=== PATIENT | female | born 1965 | race Caucasian/White ===

== ENCOUNTER → 2016-08-11 | Day surgery (SDC) | payer OTHER ==
--- NOTE | 2016-08-10 15:11 | History & Physical Pre-Op ---
General Information and HPI History of Present Illness: The patient is a 51-year-old 2 para 2 who presented to the office 2 weeks ago vaginal swelling. Was noted on examination that she had a left Bartholin's gland approximately 6-7 cm in size. She is admitted today for marsupialization of Bartholin's cyst. Allergies/Medications Allergies: Coded Allergies: Penicillins (UNKNOWN 06/20/15) Sulfa (Sulfonamide Antibiotics) (RASH 06/20/15) morphine (NAUSEA 06/20/15) sulfur dioxide (UNKNOWN 06/20/15) Uncoded Allergies: CLASS: 84:28 - KERATOLYTIC AGENTS (05/13/10) Home Med list Diazepam (Valium) 5 MG TABLET 1 TAB PO TIDPRN PRN ANXIETY (Reported) Past History Surgical History Pertinent Surgical History: bariatric, sleeve Past Family/Social History Psychosocial History Services at Home None Review of Systems Review of Systems Constitutional: Reports: no symptoms. EENTM: Reports: no symptoms. Cardiovascular: Reports: no symptoms. Respiratory: Reports: no symptoms. GI: Reports: no symptoms. Genitourinary: Reports: no symptoms. Musculoskeletal: Reports: no symptoms. Skin: Reports: no symptoms. Neurological/Psychological: Reports: no symptoms. Hematologic/Endocrine: Reports: no symptoms. Immunologic/Allergic: Reports: no symptoms. All Other Systems: Reviewed and Negative Exam & Diagnostic Data Last 24 Hrs of Vital Signs/I&O Vital signs stable Physical Exam: HEENT: Normocephalic atraumatic Chest: Clear to auscultation bilaterally Heart and vascular: Normal S1, S2 Abdomen: Soft, multiple scars Pelvic: Deferred to the OR Extremities: No clubbing cyanosis or edema Assessment/Plan Assessment/Plan: Left Bartholin's cyst Plan marsupialization of left Bartholin's cyst As Ranked By This Provider Problem List: 1. Bartholin cyst
[~2016-08-11] VITALS: Ht 170.2 cm; Wt 81.6 kg
[~2016-08-11] MED LIST: IBUPROFEN800 M1 PO; VALIUM5 M2 PO; ZOFRAN ODT4 M1 SL
--- NOTE | 2016-08-11 17:59 | Operative Report ---
Operative/Inv Procedure Report Surgery Date: 08/11/16 Name of Procedure: Marsupialization of left Bartholin's cyst Pre-Operative Diagnosis: Left Bartholin's cyst Post-Operative Diagnosis: Same Estimated Blood Loss: scant Surgeon/Executive Administrative Assistant: BRANDEE SYED MD Anesthesia: local monitored anesthesi Operative/Procedure Note Note: The patient was brought to the operating room placed on the OR table in the dorsal supine position. She was given adequate anesthesia and repositioned in a modified dorsal lithotomy. His prepped and draped in usual sterile fashion. A 6-7 cm size Bartholin's cyst was noted on the left labia. Her vaginal wall was injected with 1% lidocaine with epinephrine. An incision was made in the vaginal rivas. Inferior and this was dissected. The underlying Bartholin's cyst was noted. An elliptical incision was made and excised from the vaginal wall. The cyst was incised and noted to have a material extruding. This was sent to pathology. An elliptical incision was also made in the cyst wall and this was sent to pathology as well. Using 3-0 Polysorb and interrupted sutures were placed and the circumference of the vaginal elliptical incision and the Bartholin's cyst wall incision. Hemostasis was good patient was awakened and sent to recovery in good condition. All needle, sponge, and is recalcitrant correct at the end of procedure 2.
== END ==
LOC: STS 01:12
DX: N75.0 Cyst of Bartholin's gland (principal)
CPT/HCPCS: 81025; 88304; J2250

== ENCOUNTER 2016-09-28 15:45 | Emergency (ER) | payer OTHER ==
[~2016-09-28] VITALS: Ht 170.2 cm; Wt 83.9 kg
[~2016-09-28 15:45] MED LIST changes: -IBUPROFEN800 M1 PO; -ZOFRAN ODT4 M1 SL
[2016-09-28 16:19] LABS: ABSOLUTE BASOPHIL COUNT 0 /CUMM (0.0-0.2); ABSOLUTE EOSINOPHIL COUNT 0.1 /CUMM (0.0-0.7); ABSOLUTE GRANULOCYTE CT 6.5 /CUMM (1.4-6.5); ABSOLUTE LYMPH COUNT 1.4 /CUMM (1.2-3.4); ABSOLUTE MONOCYTE COUNT 0.6 /CUMM (0.10-0.60); BASOPHIL % 0.2 % (0.0-2.0); EOSINOPHIL % 1.5 % (0-5); HEMATOCRIT 39.7 % (37-47); MEAN CORPUSCULAR HGB 29.5 PG (27.0-31.0); MEAN CORPUSCULAR HGB CONC 33.4 G/DL (33.0-37.0); MEAN CORPUSCULAR VOLUME 88.4 FL (81.0-99.0); MEAN PLATELET VOLUME 7.5 FL (7.4-10.4); PLATELET COUNT 301 /CUMM (130-400); RBC DISTRIBUTION WIDTH 14.4 % (11.5-14.5); RED BLOOD CELL CT 4.49 /CUMM (4.20-5.40); WHITE BLOOD CELL COUNT 8.6 /CUMM (4.8-10.8)
--- NOTE | 2016-09-28 18:34 | ED GI/GU/ABDOMINAL COMPLAINT ---
History of Present Illness General Chief Complaint: Abdominal Pain/Flank Pain Stated Complaint: ABD PAIN, N/D X 4 DAYS Source: patient, old records Exam Limitations: no limitations Vital Signs & Intake/Output Vital Signs & Intake/Output Vital Signs Date Time Temp Pulse Resp B/P B/P Pulse O2 O2 Flow FiO2 Mean Ox Delivery Rate 09/28 1948 98.2 80 17 122/70 98 Room Air Room Air 09/28 1602 97.7 83 16 114/76 97 Room Air Allergies Coded Allergies: Penicillins (UNKNOWN 06/20/15) Sulfa (Sulfonamide Antibiotics) (RASH 06/20/15) morphine (NAUSEA 06/20/15) sulfur dioxide (UNKNOWN 06/20/15) Reconcile Medications Ibuprofen 800 MG TABLET 1 TAB PO PRN PAIN (Reported) Ondansetron (Zofran Odt) 4 MG TAB.RAPDIS 1 TAB SL TID PRN NAUSEA Triage Note: PT HERE FOR C/O ABD PAIN THAT STARTED 4 DAYS AGO. PT C/O EPI GASTRIC PAIN. PT REPORTS THAT SHE HAD A GASTRIC SLEEVE DONE 4 YEARS AGO AND HAS NOT HAD TROUBLE WITH IT. PT STATES THE PAST 4 DAYS SHE HAS HAD N/D. Triage Nurses Notes Reviewed? yes ? n Is pt currently ? No Onset: Abrupt Duration: day(s): (4), intermittent Timing: recent history Quality/Severity: aching, burning, moderate Severity Numbers: 5 Location: epigastric Radiation: no radiation Activities at Onset: s/p drinking spring water Prior Abdominal Problems: similar symptoms No Modifying Factors: none Associated Symptoms: nausea diarrhea HPI: This is a 51-year-old female history of cholecystectomy, appendectomy SBO gastric sleeve presents to ER for evaluation complaining of 4 days of epigastric nonradiating abdominal pain described as burning aching nonradiating after drinking [place]. She reports her was sick with a GI bug however the symptoms only last 24 hours. She reports a gurgling nausea and diarrhea no vomiting. She went to an urgent care just prior to arrival was given Zofran with improvement of nausea. No black or bloody stools. She does not smoke she denies alcohol use. No chest pain she did eat earlier today, without making the pain worse. No urinary complaints fevers or chills (JOSE GARCIA,DWAINE) Past History Travel History Traveled to [place] past 21 day No Medical History Any Pertinent Medical History? see below for history Gastrointestinal: sbo Surgical History Surgical History: appendectomy, cholecystectomy, bariatric, sleeve, ureteral repair, sbo Psychosocial History Who do you live with Family Services at Home None What is your primary language Danish Tobacco Use: Quit >30 days ago ETOH Use: denies use Illicit Drug Use: denies illicit drug use Family History Hx Contributory? No (DWAINE STONE) Review of Systems Review of Systems Constitutional: Reports: see HPI. All Other Systems: Reviewed and Negative Comments Review of systems: See HPI, All other systems negative. Constitutional, no chills no fever, no malaise HEENT: No visual changes no sore throat no congestion Cardiovascular: No chest pain , no palpitation Skin: no rashes, no change in skin Respiratory: No dyspnea no cough no sputum GI: nausea no vomiting, diarrhea, : No dysuria No hematuria, no frequency Muscle skeletal: No joint pain, no joint swelling, no back pain, no neck pain, Neurologic: No numbnessno headache Psych: No stress Heme/endocrine: No bruising Immunology: No lymphadenopathy (DWAINE STONE) Physical Exam Physical Exam General Appearance: well developed/nourished, no apparent distress, alert, awake Gastrointestinal: normal bowel sounds, soft, non-tender, no organomegaly Comments: Well-developed well-nourished person in no acute distress HEENT: Normal EENT exam; PERRL, EOMI, . HEAD is atraumatic. moist mucous membranes. Neck: Supple, no lymphadenopathy, normal range of motion Back: Nontender, no CVA tenderness. Full range of motion Cardiovascular: Regular rate and rhythms no murmurs rubs Respiratory: Chest nontender.There were no bony deformities, no asymmetry. No respiratory distress. Patient speaking in full complete sentences. Breath sounds clear to auscultation bilaterally: NO W/R/R Abdomen: Soft, nontender nondistended, no appreciable organomegaly. Normal bowel sounds. No rebound/guarding, No appreciable enlargement of the abdominal aorta, No ascites. Extremity: No edema, full range of motion of extremities Neuro: Alert oriented x3, motor sensory normal, There were no obvious focal neurologic abnormalities. Skin: No appreciable rash on exposed skin, skin is warm and dry. Psych: Mood and affect is normal, memory and judgment is normal. Core Measures ACS in differential dx? No Severe Sepsis Present: No Septic Shock Present: No (DWAINE STONE) Progress Differential Diagnosis: biliary colic, bowel obstruction, colon cancer, diverticulitis, gastritis, hepatitis, ischemic bowel, inflamm bowel dis, kidney stone, PUD/GERD, perforated viscous, SBO Plan of Care: Orders Procedure Date/time Status LIPASE 09/28 1605 Complete LACTIC ACID 09/28 1605 Complete COMPREHENSIVE METABOLIC PANEL 09/28 160 Complete CBC WITHOUT DIFFERENTIAL 09/28 160 Complete AMYLASE 09/28 160 Complete Laboratory Tests 09/28/16 1905: Lactic Acid Cancelled 09/28/16 1607: Anion Gap 10, Estimated GFR > 60, BUN/Creatinine Ratio 13.3, Glucose 90, Lactic Acid 1.0, Calcium 9.1, Total Bilirubin 0.5, AST 17, ALT 22, Alkaline Phosphatase 46, Total Protein 6.8, Albumin 3.8, Globulin 3.0, Albumin/Globulin Ratio 1.3, Amylase 69, Lipase 184, CBC w Diff NO MAN DIFF REQ, RBC 4.49, MCV 88.4, MCH 29.5 , RDW 14.4, MPV 7.5, Gran % 75.0, Lymphocytes % 16.4 L, Monocytes % 6.9, Eosinophils % 1.5, Basophils % 0.2, Absolute Granulocytes 6.5, Absolute Lymphocytes 1.4, Absolute Monocytes 0.6, Absolute Eosinophils 0.1, Absolute Basophils 0, PUBS MCHC 33.4 Labs ordered patient medicated Pepcid GI cocktail, IV fluids reports feeling improved Zofran which which she was given in the urgent care I discussed with the patient leave her CAT scan findings and lab results. She is declining anything else for pain when offered. After speaking with the patient regarding her results the patient asked that her IV fluids he stopped and she wishes to go home she reports feeling improved discussed with her need for bland diet clear liquids she is tolerating by mouth here, abdomen remains soft nontender. Return precautions were discussed the patient at length she will follow with her primary care this week (JOSE GARCIA,DWAINE) Diagnostic Imaging: Viewed by Me: CT Scan. Discussed w/RAD: CT Scan. Radiology Impression: PATIENT: HUDSON CASTILLO PRESENT AGE: 51 PATIENT ACCOUNT NO: [id number] : 65 LOCATION: [facility] ORDERING PHYSICIAN: DWAINE GARCIA SERVICE DATE: 09/28/166272 EXAM TYPE: CAT - CT ABD & PELVIS W ORAL & IV CO EXAMINATION: CT ABDOMEN AND PELVIS WITH CONTRAST CLINICAL INFORMATION: Abdominal pain and discomfort. COMPARISON: None. TECHNIQUE: Multidetector volumetric imaging was performed of the abdomen and pelvis before and after the IV administration of 95 mL of Optiray 320 intravenous contrast. Sagittal and coronal reformatted images were obtained on the technologist's workstation. DLP: 352 mGy-cm FINDINGS: LUNG BASES: The visualized lung bases are unremarkable. LIVER, GALLBLADDER, AND BILIARY TREE: The liver is normal in size, shape, and attenuation. No focal hepatic lesion or biliary ductal dilatation is present. The gallbladder is surgically absent. PANCREAS: Unremarkable. SPLEEN: Unremarkable. ADRENAL GLANDS: Unremarkable. KIDNEYS AND URETERS: Evaluation of the bilateral kidneys and renal collecting systems is notable for focal cortical defect along the upper pole of the left kidney with an associated hyperdensity, which may represent calcifications. This finding is entirely nonspecific but may be secondary to sequela of prior infection, inflammation or infarct. The right kidney appears unremarkable. No renal or ureteral stones are identified and there is no hydroureteronephrosis of either kidney or renal collecting system. BLADDER: Unremarkable. GASTROINTESTINAL TRACT: Evaluation of the gastrointestinal system is notable for postsurgical changes related to prior gastric surgery. Abdominal and pelvic bowel loops are normal in caliber, without findings indicative of small bowel obstruction or ileus. There is a moderate amount of liquid material throughout the large bowel, which can be seen in the setting of diarrhea. No circumferential bowel wall thickening or pericolonic inflammatory changes are identified. Surgical suture material is visualized along the base of the cecum and may be secondary to prior appendectomy. Suture material is also identified within the central abdomen. No organizing intra-abdominal or pelvic fluid collections are identified and there is no free intraperitoneal air. ABDOMINAL WALL: No significant hernia is appreciated. LYMPH NODES: No significant abdominal or pelvic adenopathy. VASCULAR: Patent abdominal vasculature. Normal course and caliber of the abdominal aorta and its branching vessels, without aneurysmal dilatation. PELVIC VISCERA: Unremarkable. OSSEOUS STRUCTURES: No acute osseous abnormality. Normal alignment of the thoracolumbar spine. IMPRESSION: There is a moderate amount of liquid material throughout the large bowel. This finding is nonspecific but can be seen in the setting of diarrhea. Correlate with patient symptomatology. Otherwise, no acute findings within the abdomen or pelvis to explain patient symptomatology. There are postsurgical changes related to prior gastric surgery. Abdominal and pelvic bowel loops are normal in caliber, without findings suggestive of small bowel obstruction or ileus. DICTATED BY: ROSALINA ALMENDAREZ MD DATE/TIME DICTATED:09/28/161846 HEALTH SCIENCE WRITER:SHAWN DATE/TIME TRANSCRIBED:09/28/161846 CONFIDENTIAL, DO NOT COPY WITHOUT APPROPRIATE AUTHORIZATION. <Electronically signed in Other Vendor System> SIGNED BY: ROSALINA ALMENDAREZ MD 09/28/161902 Initial ED EKG: none (DWAINE STONE) Departure Departure Time of Disposition: 1936 Disposition: HOME OR SELF CARE Condition: Stable Clinical Impression Primary Impression: Abdominal pain Secondary Impressions: Diarrhea Referrals: ALE GONZALEZ,MAULIK Carlin (PCP/Family) Additional Instructions: DRINK PLENTY OF CLEAR FLUIDS, BLAND DIET, ZOFRAN IF NEEDED FOR NAUSEA. FOLLOW UP WITH YOUR PMD THIS WEEK FOR REEVAL. RETURN TO THE ER AT ANYTIME SOONER WITH ANY CONCERNS THIS WAS SENT TO [facility] Departure Forms: Customer Survey General Discharge Information Prescriptions: Current Visit Scripts Ondansetron (Zofran Odt) 1 TAB SL TID PRN NAUSEA #10 TAB (DWAINE STONE) PA/SCHEDULE ANALYST Co-Sign Statement Statement: ED Attending supervision documentation- [] I saw and evaluated the patient. I have also reviewed all the pertinent lab results and diagnostic results. I agree with the findings and the plan of care as documented in the PA's/SCHEDULE ANALYST's documentation. [X] I have reviewed the ED Record and agree with the PA's/SCHEDULE ANALYST's documentation. [] Additions or exceptions (if any) to the PAs/SCHEDULE ANALYST's note and plan are summarized below: [] (HUONG GONZALEZ,MAGY Mccormack)
--- NOTE | 2016-09-28 19:03 | CT SCAN REPORT ---
EXAMINATION: CT ABDOMEN AND PELVIS WITH CONTRAST CLINICAL INFORMATION: Abdominal pain and discomfort. COMPARISON: None. TECHNIQUE: Multidetector volumetric imaging was performed of the abdomen and pelvis before and after the IV administration of 95 mL of Optiray 320 intravenous contrast. Sagittal and coronal reformatted images were obtained on the technologist's workstation. DLP: 352 mGy-cm FINDINGS: LUNG BASES: The visualized lung bases are unremarkable. LIVER, GALLBLADDER, AND BILIARY TREE: The liver is normal in size, shape, and attenuation. No focal hepatic lesion or biliary ductal dilatation is present. The gallbladder is surgically absent. PANCREAS: Unremarkable. SPLEEN: Unremarkable. ADRENAL GLANDS: Unremarkable. KIDNEYS AND URETERS: Evaluation of the bilateral kidneys and renal collecting systems is notable for focal cortical defect along the upper pole of the left kidney with an associated hyperdensity, which may represent calcifications. This finding is entirely nonspecific but may be secondary to sequela of prior infection, inflammation or infarct. The right kidney appears unremarkable. No renal or ureteral stones are identified and there is no hydroureteronephrosis of either kidney or renal collecting system. BLADDER: Unremarkable. GASTROINTESTINAL TRACT: Evaluation of the gastrointestinal system is notable for postsurgical changes related to prior gastric surgery. Abdominal and pelvic bowel loops are normal in caliber, without findings indicative of small bowel obstruction or ileus. There is a moderate amount of liquid material throughout the large bowel, which can be seen in the setting of diarrhea. No circumferential bowel wall thickening or pericolonic inflammatory changes are identified. Surgical suture material is visualized along the base of the cecum and may be secondary to prior appendectomy. Suture material is also identified within the central abdomen. No organizing intra-abdominal or pelvic fluid collections are identified and there is no free intraperitoneal air. ABDOMINAL WALL: No significant hernia is appreciated. LYMPH NODES: No significant abdominal or pelvic adenopathy. VASCULAR: Patent abdominal vasculature. Normal course and caliber of the abdominal aorta and its branching vessels, without aneurysmal dilatation. PELVIC VISCERA: Unremarkable. OSSEOUS STRUCTURES: No acute osseous abnormality. Normal alignment of the thoracolumbar spine. IMPRESSION: There is a moderate amount of liquid material throughout the large bowel. This finding is nonspecific but can be seen in the setting of diarrhea. Correlate with patient symptomatology. Otherwise, no acute findings within the abdomen or pelvis to explain patient symptomatology. There are postsurgical changes related to prior gastric surgery. Abdominal and pelvic bowel loops are normal in caliber, without findings suggestive of small bowel obstruction or ileus.
[2016-09-28] MEDS ORDERED: IBUPROFEN800 M1 PO (19:05)
[2016-09-28] MEDS ORDERED: ZOFRAN ODT4 M1 SL (19:38)
[2016-09-28 19:49] VITALS: BP 122/70
== END 2016-09-28 19:49 ==
LOC: ERH 15:45
PROVIDERS: Emergency Medicine
DX: R10.13 Epigastric pain (principal); R19.7 Diarrhea, unspecified
CPT/HCPCS: 74177; 96374

== ENCOUNTER 2017-06-16 08:46 | Emergency (ER) | payer OTHER ==
[~2017-06-16] VITALS: Ht 170.2 cm; Wt 86.2 kg
[~2017-06-16 08:46] MED LIST changes: +IBUPROFEN800 M1 PO; +ZOFRAN ODT4 M1 SL
--- NOTE | 2017-06-16 09:27 | ED UPPER/LOWER EXTREMITY COMPL ---
History of Present Illness General Chief Complaint: General Adult Stated Complaint: RIGHT HAND 3RD DIGIT INFECTION, UTI? Source: patient Exam Limitations: no limitations Vital Signs & Intake/Output Vital Signs & Intake/Output Vital Signs Date Time Temp Pulse Resp B/P B/P Pulse O2 O2 Flow FiO2 Mean Ox Delivery Rate 06/16 1055 97.1 89 18 118/74 98 Room Air 06/16 0926 98 Room Air 06/16 0856 96.4 99 20 120/77 99 Room Air Allergies Coded Allergies: Penicillins (UNKNOWN 06/20/15) Sulfa (Sulfonamide Antibiotics) (RASH 06/20/15) morphine (NAUSEA 06/20/15) sulfur dioxide (UNKNOWN 06/20/15) Reconcile Medications Cephalexin (Keflex) 500 MG CAPSULE 1 CAP PO BID CELLULITIS Ciprofloxacin HCl (Cipro) 500 MG TABLET 1 TAB PO BID UTI Oxycodone HCl/Acetaminophen (Percocet 5-325 MG Tablet) 5 MG-325 MG TABLET 1 TAB PO TID PRN PAIN Triage Note: PT TO ED C/O INFECTION TO RIGHT HAND MIDDLE FINGER. ALSO STATES "I THINK I HAVE A UTI". Triage Nurses Notes Reviewed? yes Onset: Gradual Duration: constant Timing: recent history Severity: moderate Severity Numbers: 5 HPI: Patient is a 52-year-old female with a past medical history of recurrent UTIs who presents emergency room with 2 complaints, patient states that she's had for the past 5 days persistent increased frequency of urination and dysuria where she is taken reviews the prescribe peridium with no relief of symptoms. Denies any fever chills back pain abdominal pain nausea or vomiting. Patient also complains of a 3 day history of left-sided distal 3RD fingertip swelling pain and redness due to patient biting cuticles of her lateral nail where she also states that she took a pin to the swollen region where she noted purulent discharge afterwards Past History Travel History Traveled to [place] past 21 day No Medical History Any Pertinent Medical History? see below for history Gastrointestinal: sbo, UTI Surgical History Surgical History: appendectomy, cholecystectomy, bariatric, sleeve ureteral repair, sbo Psychosocial History Who do you live with Family Services at Home None What is your primary language Swiss Tobacco Use: Quit >30 days ago ETOH Use: denies use Illicit Drug Use: denies illicit drug use Family History Hx Contributory? No Review of Systems Review of Systems Constitutional: Reports: see HPI. Denies: chills, fever. EENTM: Reports: no symptoms. Respiratory: Reports: no symptoms. Cardiovascular: Reports: no symptoms. Gastrointestinal/Abdominal: Reports: see HPI. Denies: abdominal pain. Genitourinary: Reports: see HPI, frequency. Musculoskeletal: Reports: see HPI, joint pain, joint swelling. Skin: Reports: see HPI. Neurological/Psychological: Reports: no symptoms. Hematologic/Endocrine: Reports: no symptoms. Immunological: Reports: no symptoms. All Other Systems: Reviewed and Negative Physical Exam Physical Exam General Appearance: no apparent distress, alert, comfortable Head: atraumatic Eyes: Bilateral: normal appearance. Ears, Nose, Throat: hearing grossly normal Neck: normal inspection Cardiovascular/Respiratory: no respiratory distress Peripheral Pulses: 2+ radial (L) Gastrointestinal: NONTENDER ABDOMEN Neurologic/Tendon: normal sensation, normal motor functions, normal tendon functions, responds to pain, no evidence tendon injury, no pulse deficit Skin: intact Diagram Hands Back 1) NOTED CIRCUMFERENTIAL erythema warmth and tenderness no active discharge full active range of motion with flexion and extension of digit Progress Differential Diagnosis: arterial insufficiency, cellulitis, compartment syndrome , contusion, gout, septic arthritis, sprain, tendon injury Plan of Care: Orders Procedure Date/time Status EXTREMETIES CULTURE 06/16 0934 Active CULTURE,URINE 06/16 0910 Active URINALYSIS 06/16 0859 Complete Laboratory Tests 06/16/17 0915: Urine Color STRAW, Urine Clarity CLEAR, Urine pH 6.0, Ur Specific [place] <= 1.005, Urine Protein NEG, Urine Ketones NEG, Urine Nitrite NEG, Urine Bilirubin NEG, Urine Urobilinogen 0.2, Ur Leukocyte Esterase SMALL H, Ur Microscopic SEDIMENT EXAMINED, Urine RBC PACKD H, Urine WBC 5-10 H, Ur Epithelial Cells MOD H, Urine Bacteria RARE H, Urine Hemoglobin NEG, Urine Glucose NEG Microbiology 06/16 1020 EXTREMITIE: Culture & Sensitivity - RECD 06/16 1020 EXTREMITIE: Gram Stain - RECD 06/16 0915 URINE ROUT: Urine Culture - RECD Differential diagnosis include UTI pyelonephritis infective tenosynovitis Left distal phalanx of hand third digit- initially chlorhexidine was used for sterile technique and which approximately 3 mL of 1% lidocaine was used for local anesthesia along with L.E.T. And which a 5 mm incision was made with a # 15 blade mild purulent discharge was excised culture was obtained gauze and finger bandages was applied, Discussed antibiotic coverage with Dr. Howard who advised patient to be covered with doxycycline and Keflex Departure Departure Disposition: HOME OR SELF CARE Condition: Stable Clinical Impression Primary Impression: UTI (urinary tract infection) Secondary Impressions: Abscess of finger of left hand, Cellulitis of middle finger Referrals: Pascual GONZALEZ,Dianne (PCP/Family) Additional Instructions: As discussed begin the prescription of doxycycline and Keflex as directed for the full course, prescriptions are waiting AT [facility]. Return to the emergency room or follow-up with your primary care doctor in 2 days for wound recheck of your finger, if symptoms worsen or if you develop a new concerning symptom return to the emergency room, begin changing the dressings with the extra bandages provided to YOU IN the emergency room once a day. Keep area dry and clean YOU can \\Begin the prescription of Percocet for pain Departure Forms: Customer Survey General Discharge Information Prescriptions: Current Visit Scripts Cephalexin (Keflex) 1 CAP PO BID #14 CAP Ciprofloxacin HCl (Cipro) 1 TAB PO BID #14 TAB Oxycodone HCl/Acetaminophen (Percocet 5-325 MG Tablet) 1 TAB PO TID PRN PAIN #8 TAB
[2017-06-16] MEDS ORDERED: CIPRO500 M1 PO (10:07)
[2017-06-16] MEDS ORDERED: KEFLEX500 M1 PO (10:07)
[2017-06-16] MEDS ORDERED: PERCOCET 5-3251 EACH PO (10:23)
[2017-06-16 10:55] VITALS: BP 118/74
== END 2017-06-16 10:45 ==
LOC: ERH 08:46
DX: N39.0 Urinary tract infection, site not specified (principal); L02.512 Cutaneous abscess of left hand; L03.012 Cellulitis of left finger
CPT/HCPCS: 81001; 87070; 87086